=== PATIENT | female | born 1980 | race Caucasian/White ===

== ENCOUNTER → 2020-01-27 10:46 | Outpatient (CLI) | payer BC, SELFPAY ==
--- NOTE | ~2020-01-27 | US_ITS ---
EXAMINATION: US thyroid EXAM DATE: 01/27/2020 11:45 INDICATION: Nontoxic single thyroid nodule TECHNIQUE: Multiple grayscale and Doppler images of the thyroid were obtained (by a technologist who performed the scan) and subsequently reviewed. Individual nodules and recommendations may be reporte d in accordance with TI-RADS system as designated by the 2017 ACR White Paper TI-RADS committee. Kaylah santiago is made to prior examination from January 2018. FINDINGS: Right thyroid lobe measures 5.5 x 1.7 x 1.8 cm, the left measuring 4.9 x 1.2 x 1.6 cm, mildly diffuse ly heterogeneous echogenicity. There is a right thyroid lobe measuring 0.7 x 0.5 x 1.3 cm, predominantly solid (2 points), hypoechoi c (2 points), wider than tall, smooth margin, without echogenic foci, category TR4 for this nodule. Largest measurement is slightly larger than on prior study, however on this exam this included a smal l adjacent cystic component which could be part of the nodule. Visually there is no interval change. In the left thyroid lobe there is equivocal focal solid region measuring 1.4 x 1.0 x 1.1 cm, a region which is contiguous to the cystic region measured on prior study that was not measured on this exam. Cystic region appears smaller than on prior study. This may just be some heterogeneity of the thyroi d tissue. IMPRESSION: 1. Mild thyromegaly. 2. Small thyroid nodules without interval growth. Consider additional 1 or 2 year follow-up exam. Reviewed, dictated and finalized at location B. ENT UNION CONSULTANT IMPRESSION: 1. Mild thyromegaly. 2. Small thyroid nodules without interval growth. Consider additional 1 or 2 y ear follow-up exam.
== END ==
PROVIDERS: Visit Provider Obstetrics & Gynecology Gynecology
DX: E04.1 Nontoxic single thyroid nodule (principal)
CPT/HCPCS: 76536

== ENCOUNTER → 2020-03-13 09:54 | Outpatient (CLI) | payer BC, SELFPAY ==
--- NOTE | ~2020-03-13 | MM_ITS ---
EXAMINATION: MM screening amanda BI w melody HISTORY: Screening mammogram TECHNIQUE: Craniocaudal and mediolateral oblique 3-D tomosynthesis images were obtained and synthetic 2-D images were generated. CAD analysis was submitted and interpreted. COMPARISON: None, baseline BREAST PARENCHYMAL COMPOSITION: The breasts are heterogeneously dense, which may obscure small masses . FINDINGS: There is no evidence of suspicious mass, calcification, or architectural distortion to sugg est malignancy in either breast. IMPRESSION: 1. No mammographic evidence of malignancy. 2. Recommend routine screening mammography in one year. BI-RADS Category 1: Negative Reviewed, dictated and finalized at location A. TER PACKING MACHINE TENDER
== END ==
PROVIDERS: Visit Provider Nurse Practitioner
DX: Z12.31 Encounter for screening mammogram for malignant neoplasm of breast (principal)
CPT/HCPCS: 77063; 77067

== ENCOUNTER 2021-03-15 08:48 | Outpatient (CLI) | payer OTHER, SELFPAY ==
--- NOTE | ~2021-03-15 | US_ITS ---
EXAMINATION: US thyroid DATE: 03/15/2021 09:08 INDICATION: Thyroid nodule TECHNIQUE: Multiple ultrasound images of the thyroid were obtained. COMPARISON: 01/27/2020 FINDINGS: The right thyroid lobe measures 6.0 x 1.6 x 1.5 cm. The left thyroid lobe measures 5.5 x 1.2 x 1.6 c m. No interval change in a 1.3 similar wider than tall solid hypoechoic nodule with smooth well-defi eliezer margins and without echogenic foci (TI-RADS 4, moderately suspicious , FNA if >=1.5 cm, annual fo llowup is >=1 cm). Also without significant change is a 9 mm cystic TI RADS 1 nodule in the left thyr oid. There are couple additional wider than tall solid hypoechoic nodules with ill-defined margins me asuring 4 mm in maximal diameter in both the left and right thyroid lobes, also TI RADS 4. There is o therwise normal echotexture, echogenicity and vascular flow throughout the thyroid gland. IMPRESSION: 1. Multinodular goiter with no interval change in a few nodules all of which remain below size criter ia for biopsy but the largest which meets criteria for continued annual follow-up which would be marina mmended. Reviewed, dictated and finalized at location H. IAGE THERAPIST IMPRESSION: 1. Multinodular goiter with no interval change in a few nodules all of which re main below size criteria for biopsy but the largest which meets criteria for co ntinued annual follow-up which would be recommended.
--- NOTE | ~2021-03-15 | MM_ITS ---
EXAMINATION: MM screening amanda BI w melody HISTORY: Screening mammogram TECHNIQUE: Craniocaudal and mediolateral oblique 3-D tomosynthesis images were obtained and synthetic 2-D images were generated. CAD analysis was submitted and interpreted. COMPARISON: 03/13/2020 BREAST PARENCHYMAL COMPOSITION: The breasts are heterogeneously dense, which may obscure small masses . FINDINGS: There is no evidence of suspicious mass, calcification, or architectural distortion to sugg est malignancy in either breast. There has been no suspicious interval change. IMPRESSION: 1. No mammographic evidence of malignancy. 2. Recommend routine screening mammography in one year. BI-RADS Category 1: Negative Reviewed, dictated and finalized at location A. IL GREETER
== END 2021-03-15 08:49 ==
LOC: MICIMG 08:50
PROVIDERS: Visit Provider Nurse Practitioner
DX: Z12.31 Encounter for screening mammogram for malignant neoplasm of breast (principal); E04.2 Nontoxic multinodular goiter
CPT/HCPCS: 76536; 77063; 77067

== ENCOUNTER → 2022-04-05 10:50 | Outpatient (CLI) | payer OTHER, SELFPAY ==
--- NOTE | ~2022-04-05 | MM_ITS ---
EXAMINATION: MM screening amanda BI w melody HISTORY: Screening mammogram TECHNIQUE: Craniocaudal and mediolateral oblique 3-D tomosynthesis images were obtained and synthetic 2-D images were generated. Bilateral rotated lateral CC views. CAD analysis was submitted and interp reted. COMPARISON: 03/15/2021, 03/13/2020 bilateral screening mammogram examinations BREAST PARENCHYMAL COMPOSITION: The breasts are heterogeneously dense, which may obscure small masses . FINDINGS: There is no evidence of suspicious mass, calcification, or architectural distortion to sugg est malignancy in either breast. There has been no suspicious interval change. IMPRESSION: 1. No mammographic evidence of malignancy. 2. Recommend routine screening mammography in one year. BI-RADS Category 1: Negative Reviewed, dictated and finalized at location A. TAL PRODUCER
--- NOTE | ~2022-04-05 | US_ITS ---
EXAMINATION: US thyroid DATE: 04/05/2022 11:17 INDICATION: Nontoxic single thyroid nodule. TECHNIQUE: Multiple ultrasound images of the thyroid were obtained. COMPARISON: Ultrasound 03/15/2021 FINDINGS: The right thyroid lobe measures 6.2 x 1.7 x 1.8 cm. The left thyroid lobe measures 5.8 x 1.3 x 1.9 c m. In the left thyroid lobe, there is a 9 mm solid, hypoechoic, wider than tall nodule with smooth m argin without echogenic foci (TI-RADS TR4). In the right thyroid lobe, there is a 6 mm solid, hypoech oic, wider than tall nodule with smooth margin without echogenic foci (TR4). In the right thyroid lob e, there is a 5 mm solid, hypoechoic, wider than tall nodule with ill-defined margin without echogeni c foci (TR4). IMPRESSION: 1. Small thyroid nodules, likely not clinically significant. No follow-up is needed. Reviewed, dictated and finalized at location A. TRADES ASSISTANTS IMPRESSION: 1. Small thyroid nodules, likely not clinically significant. No follow-up is ne eded.
== END ==
PROVIDERS: PCP Emergency Medicine; Visit Provider Nurse Practitioner
DX: Z12.31 Encounter for screening mammogram for malignant neoplasm of breast (principal); E04.2 Nontoxic multinodular goiter
CPT/HCPCS: 76536; 77063; 77067

== ENCOUNTER 2023-01-13 19:37 | Emergency (ER) | payer OTHER, SELFPAY ==
[2023-01-13 19:41] VITALS: BP 156/91; PULSE 94; RESP 18; TEMP 36.7; O2SAT 97
--- NOTE | 2023-01-13 19:43 | ED.EAR ---
HPI - Ear Problem General Chief complaint: Ear Stated complaint: ear pain Source: patient and RN notes reviewed History of Present Illness HPI Narrative: 42 yo F presents to urgent care with complaints of left ear pain and clear drainage from the ear since Monday. Pt also reporting congestion and runny nose. Pt states she has had a cough x 3 weeks. Pt has been using Mucinex, Sudafed, and Flonase at home with minimal relief. 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 Related Data Home Medications Medication Instructions Recorded Confirmed Zyrtec 01/13/23 cholecalciferol (vitamin D3) 50 01/13/23 mcg (2,000 unit) capsule escitalopram oxalate 20 mg tablet mg 01/13/23 01/13/23 Allergies Allergy/AdvReac Type Severity Reaction Status Date / Time No Known Allergies Allergy Mild Unverified 01/13/22 10:58 Review of Systems Review of Systems: CONSTITUTIONAL: Denies fever, chills, or sweats. EYES: Denies visual changes, redness, or discharge. ENT: left ear pain CARDIOVASCULAR: Denies chest pain, palpitations, or edema. RESPIRATORY: cough GASTROINTESTINAL: Denies abdominal pain, nausea, vomiting, or diarrhea. GENITOURINARY: Denies dysuria or hematuria. SKIN: Denies rash or itching. MUSCULOSKELETAL: Denies back pain, joint pain, or myalgia. NEUROLOGIC: Denies headache, numbness, or weakness. Pertinent positives per HPI. PMFSH Family History Family History Other Depression Diabetes mellitus Family history of hypercholesterolemia Family history of malignant neoplasm Hypertension Social History Social History Smoking status: Never smoker Alcohol intake: current Comments At the time of my signature, I reviewed and agree with the nursing past medical, surgical, social, and family history. There is no relevant family history pertinent to the patient complaint. Exam Narrative: GENERAL: This is a well-nourished, well-developed patient, in no apparent distress. HEAD: normocephalic, atraumatic. EYES: Sclera clear/white. Vision is grossly intact. EARS: External ears normal, auditory canals clear and without drainage, Right TM normal without perforation. Hearing grossly intact. Left TM erythremic and bulging. NOSE: External nose normal with clear nasal discharge, nares without redness. THROAT: Mucous membranes moist, posterior pharynx clear. NECK: Neck supple, non-tender without lymphadenopathy, masses or thyromegaly. CARDIOVASCULAR: Regular rate and rhythm without murmurs, gallops, or rubs. RESPIRATORY: Clear to auscultation. Breath sounds equal bilaterally. No wheezes, rales, or rhonchi. SKIN: warm, intact with no suspicious lesions or rash, good texture and turgor. NEURO: awake, alert, and oriented to person, place and time. There were no obvious focal neurologic abnormalities. Course Course Level of Care: Express Care Visit Vital Signs Vital signs: Vital Signs Temperature 98.1 F 01/13/23 19:41 Pulse Rate 94 01/13/23 19:41 Respiratory Rate 18 01/13/23 19:41 Blood Pressure 156/91 H 01/13/23 19:41 Pulse Oximetry 97 01/13/23 19:41 Oxygen Delivery Room Air 01/13/23 19:41 Temperature 98.1 F 01/13/23 19:41 Pulse Rate 94 01/13/23 19:41 Respiratory Rate 18 01/13/23 19:41 Blood Pressure 156/91 H 01/13/23 19:41 Pulse Oximetry 97 01/13/23 19:41 Oxygen Delivery Room Air 01/13/23 19:41 Reviewed Medical Decision Making MDM Narrative Medical decision making narrative: May use the inhaler every 4-6 hours as needed for coughing. Increase fluids at home. Avoid any and all smoke. May use a humidifier in the bedroom. Increase your Vitamin C. Follow-up with personal physician in 2-5 days. Take antibiotics as directed. May given ibuprofen and/or Tylenol as needed for pain and/or fever. Follow up with primary care provider in 7-10 days to have ear rechecked.
== END 2023-01-13 20:08 | disposition home or self-care (01) ==
PROVIDERS: Emergency Provider Nurse Practitioner Family; PCP Emergency Medicine
DX: J40 Bronchitis, not specified as acute or chronic (principal); H66.92 Otitis media, unspecified, left ear
CPT/HCPCS: 99213; G0463

== ENCOUNTER 2023-01-18 09:17 | Outpatient (CLI) | payer OTHER, SELFPAY ==
--- NOTE | ~2023-01-18 | XR_ITS ---
XR chest 2V DATE: 01/18/2023 09:38 INDICATION: Cough for one month TECHNIQUE: 2 views COMPARISON: None FINDINGS: Normal heart size. No hilar or mediastinal enlargement. No pulmonary infiltrate or consolid ation, pleural effusion or pulmonary vascular congestion or pneumothorax is detected. IMPRESSION: No active cardiopulmonary disease Reviewed, dictated and finalized at location A.
== END 2023-01-18 09:18 ==
PROVIDERS: PCP Emergency Medicine; Visit Provider Emergency Medicine
DX: R05.9 Cough, unspecified (principal)
CPT/HCPCS: 71046

== ENCOUNTER → 2023-05-05 10:40 | Outpatient (CLI) | payer OTHER, SELFPAY ==
--- NOTE | ~2023-05-05 | MM_ITS ---
EXAMINATION: MM screening amanda BI w melody HISTORY: Screening mammogram TECHNIQUE: Craniocaudal and mediolateral oblique 3-D tomosynthesis images were obtained and synthetic 2-D images were generated. CAD analysis was submitted and interpreted. COMPARISON: Serial images dating back to 03/13/2020 bilateral screening mammogram BREAST PARENCHYMAL COMPOSITION: There are scattered areas of fibroglandular density. FINDINGS: There is no evidence of suspicious mass, calcification, or architectural distortion to sugg est malignancy in either breast. There has been no suspicious interval change. IMPRESSION: 1. No mammographic evidence of malignancy. 2. Recommend routine screening mammography in one year. BI-RADS Category 1: Negative Reviewed, dictated and finalized at location A. ONAL CARE ATTENDANT
== END ==
PROVIDERS: PCP Emergency Medicine; Visit Provider Nurse Practitioner
DX: Z12.31 Encounter for screening mammogram for malignant neoplasm of breast (principal)
CPT/HCPCS: 77063; 77067

== ENCOUNTER 2024-06-13 10:51 | Outpatient (CLI) | payer OTHER, SELFPAY ==
--- NOTE | ~2024-06-13 | MM_ITS ---
EXAMINATION: MM screening amanda BI w melody HISTORY: Screening TECHNIQUE: Craniocaudal and mediolateral oblique 3-D tomosynthesis images were obtained and synthetic 2-D images were generated. CAD analysis was submitted and interpreted. COMPARISON: Comparison to multiple prior studies sequentially, with oldest reviewed study dated 02/24. BREAST PARENCHYMAL COMPOSITION: Not dense: There are scattered areas of fibroglandular density. FINDINGS: There is no evidence of suspicious mass, calcification, or architectural distortion to sugg est malignancy in either breast. There has been no suspicious interval change. IMPRESSION: 1. No mammographic evidence of malignancy. 2. Recommend routine screening mammography in one year. BI-RADS Category 1: Negative Reviewed, dictated and finalized at location B.
== END 2024-06-13 10:52 | disposition home or self-care (01) ==
LOC: MICIMG 10:53
PROVIDERS: PCP Family Medicine; Visit Provider Obstetrics & Gynecology Gynecology
DX: Z12.31 Encounter for screening mammogram for malignant neoplasm of breast (principal)
CPT/HCPCS: 77063; 77067

== ENCOUNTER 2024-08-27 11:07 | Outpatient (CLI) | payer OTHER, SELFPAY ==
[2024-08-27 13:52] LABS: Kit Draw Collected
== END 2024-08-27 11:08 | disposition home or self-care (01) ==
PROVIDERS: PCP Family Medicine; Visit Provider Family Medicine
DX: L50.9 Urticaria, unspecified (principal); Z00.00 Encounter for general adult medical examination without abnormal findings; R10.9 Unspecified abdominal pain
CPT/HCPCS: 36415